=== PATIENT | female | born 1965 | race Two or more races ===

== ENCOUNTER 2025-03-16 06:51 | Outpatient (CLI) | payer OTHER ==
[2025-03-16 07:47] LABS: Hematocrit 40.6 % (36.0-46.0); Hemoglobin 14.0 g/dL (12.2-16.2); Mean Corpuscular Hemoglobin 30.1 pg (28.0-32.0); Mean Corpuscular Volume 87.6 fL (80.0-100.0); Nucleated Red Blood Cells % 0.0 %
[2025-03-16 07:53] LABS: Urine Protein, UAD Negative (Negative)
[2025-03-16 08:17] LABS: Alanine Aminotransferase 26 U/L (7-40); Albumin 4.4 g/dL (3.2-4.8); Alkaline Phosphatase 101 U/L (46-116); Anion Gap 9 (5-15); BUN/Creatinine Ratio 10.9 (10.0-20.0); Blood Urea Nitrogen 10 mg/dL (9-23); Calcium 9.8 mg/dL (8.7-10.4); Carbon Dioxide 28 mmol/L (20-31); Chloride 106 mmol/L (98-107); Cholesterol 192 mg/dL (< 200); Glucose 88 mg/dL (74-106); Potassium 4.2 mmol/L (3.5-5.1); Sodium 143 mmol/L (136-145); Total Protein 6.8 g/dL (5.7-8.2); Triglycerides 121 mg/dL (< 150)
[2025-03-16 08:18] LABS: Bilirubin, Total 0.6 mg/dL (0.2-1.0)
[2025-03-16 08:20] LABS: Amylase 133 U/L (30-118); HDL Cholesterol 63 mg/dL (40-59)
[2025-03-16 08:45] LABS: Uric Acid 4.4 mg/dL (3.1-7.8)
== END 2025-03-16 17:00 | disposition home or self-care (01) ==
LOC: LAB 06:51
PROVIDERS: ATTEND Family Medicine
DX: F33.9 Major depressive disorder, recurrent, unspecified (principal); N95.9 Unspecified menopausal and perimenopausal disorder; F10.20 Alcohol dependence, uncomplicated; F41.1 Generalized anxiety disorder; Z68.25 Body mass index [BMI] 25.0-25.9, adult; Z12.11 Encounter for screening for malignant neoplasm of colon; Z87.81 Personal history of (healed) traumatic fracture
CPT/HCPCS: 36415; 80053; 80061; 81001; 82150; 82306; 82607; 82746; 83036; 84443; 84550; 85025

== ENCOUNTER 2025-03-21 16:15 | Outpatient (CLI) | payer OTHER | END 2025-03-21 17:00 | disposition home or self-care (01) | LOC: LAB 16:15 | PROVIDERS: ATTEND Family Medicine | DX: N95.1 Menopausal and female climacteric states (principal); F41.1 Generalized anxiety disorder; F10.20 Alcohol dependence, uncomplicated; F33.9 Major depressive disorder, recurrent, unspecified; Z68.25 Body mass index [BMI] 25.0-25.9, adult; Z12.11 Encounter for screening for malignant neoplasm of colon; Z87.81 Personal history of (healed) traumatic fracture | CPT/HCPCS: 82270 ==